=== PATIENT | female | born 1990 | race Caucasian/White ===

== ENCOUNTER 2019-09-09 14:21 | Emergency (ER) | payer BC ==
--- NOTE | 2019-09-09 14:40 | ERPHSYRPT ---
- History of Present Illness Time Seen by Provider: 09/09/19 14:40 Historian: patient Exam Limitations: no limitations Patient Subjective Stated Complaint: Pt woke up this morning and was feeling nauseaous and had some diarrhea, later vomited 3 times and has cramping across her upper abdomen, hx of kidney stones and she said that it feels like that Triage Nursing Assessment: Pt walked into the ER with c/o to her martin upper quadrants of abdomen, vomiting, cramping, vitals wnl, rates pain 8/10, skin is flushed, pulses normal, lungs clear, diarrhea Physician History: 29 y/o white female presents with first nausea, then vomiting then abd cramping then diarrhea. began this am. similar sx as in past when she had "kidney stones ". no cough, no sore throat. no other individuals with similar sx. Timing/Duration: today Activities at Onset: none Quality: cramping Abdominal Pain Onset Location: generalized abdomen Pain Radiation: no radiation Severity of Pain-Max: moderate Severity of Pain-Current: moderate Modifying Factors: Improves With: vomiting Associated Symptoms: diarrhea, loss of appetite, nausea, vomiting Previous symptoms: no prior history Allergies/Adverse Reactions: Sulfa (Sulfonamide Antibiotics) Allergy (Verified 09/09/19 14:39) Home Medications: Levonorgestrel-Ethin Estradiol [Sronyx 0.10-0.02 mg Tablet] 1 tab PO DAILY 09/09 [History] - Review of Systems Constitutional: No Symptoms Eyes: No Symptoms Ears, Nose, & Throat: No Symptoms Respiratory: No Symptoms Cardiac: No Symptoms Abdominal/Gastrointestinal: Abdominal Pain, Nausea, Vomiting, Diarrhea Genitourinary Symptoms: No Symptoms Musculoskeletal: No Symptoms Skin: No Symptoms Neurological: No Symptoms Psychological: No Symptoms Endocrine: No Symptoms Hematologic/Lymphatic: No Symptoms Immunological/Allergic: No Symptoms All Other Systems: Reviewed and Negative - Past Medical History Pertinent Past Medical History: Yes Neurological History: No Pertinent History ENT History: No Pertinent History Cardiac History: No Pertinent History Respiratory History: No Pertinent History Endocrine Medical History: No Pertinent History Musculoskeletal History: No Pertinent History GI Medical History: No Pertinent History History: No Pertinent History Psycho-Social History: No Pertinent History Female Reproductive Disorders: No Pertinent History Other Medical History: kidney stones - Past Surgical History Past Surgical History: Yes Neuro Surgical History: No Pertinent History Cardiac: No Pertinent History Respiratory: No Pertinent History Gastrointestinal: No Pertinent History Genitourinary: No Pertinent History Musculoskeletal: No Pertinent History Female Surgical History: Section - Social History Smoking Status: Never smoker Exposure to second hand smoke: No Patient Lives Alone: No - Female History Hx Last Menstrual Period: 08/30/2019 Hx Now: No - Nursing Vital Signs Nursing Vital Signs: Initial Vital Signs Temperature 98.4 F 09/09/19 14:27 Pulse Rate 92 H 09/09/19 14:27 Blood Pressure 126/85 09/09/19 14:27 O2 Sat by Pulse Oximetry 100 09/09/19 14:27 Pain Scale Pain Intensity 8 - Physical Exam General Appearance: mild distress, alert, anxiety Eye Exam: PERRL/EOMI, eyes nml inspection Ears, Nose, Throat Exam: normal ENT inspection, moist mucous membranes Neck Exam: normal inspection, non-tender, supple, full range of motion Respiratory Exam: normal breath sounds, lungs clear, No chest tenderness, No respiratory distress Cardiovascular Exam: regular rate/rhythm, normal heart sounds, normal peripheral pulses Gastrointestinal/Abdomen Exam: soft, normal bowel sounds, tenderness (mild diffuse), guarding, No rebound Pelvic Exam: not done Rectal Exam: not done Back Exam: normal inspection, normal range of motion, No CVA tenderness, No vertebral tenderness Extremity Exam: normal inspection, normal range of motion, pelvis stable Neurologic Exam: alert, oriented x 3, cooperative, irrigation manager II-XII nml as tested Skin Exam: normal color, warm, dry Lymphatic Exam: No adenopathy SpO2 Interpretation: normal SpO2: 100 O2 Delivery: Room Air Ordered Tests: Active Orders 24 hr Category Date Time Status IV Insertion STAT Care 09/09/19 14:44 Active ABDOMEN AND PELVIS W/0 CONTRAS [CT] Stat Exams 09/09/19 14:45 Completed AMYLASE Stat Lab 09/09/19 15:05 Completed CBC W DIFF Stat Lab 09/09/19 14:44 Completed CMP Stat Lab 09/09/19 15:05 Completed HCG,QUALITATIVE URINE Stat Lab 09/09/19 16:05 Completed LIPASE Stat Lab 09/09/19 15:05 Completed Lactic Acid Stat Lab 09/09/19 15:40 Completed UA W/RFX UR CULTURE Stat Lab 09/09/19 Completed Medication Summary Discontinued Medications Generic Name Dose Route Start Last Admin Trade Name Freq PRN Reason Stop Dose Admin Hydromorphone HCl 0.5 mg 09/09/19 14:44 09/09/19 15:05 Hydromorphone 1 Mg/Ml Ampule IV 09/09/19 14:45 0.5 mg STAT ONE Administration Hydromorphone HCl Confirm 09/09/19 15:01 Hydromorphone 1 Mg/Ml Ampule Administered 09/09/19 15:02 Dose 1 mg .ROUTE .STK-MED ONE Sodium Chloride 1,000 mls @ 999 mls/hr 09/09/19 14:44 09/09/19 16:08 Sodium Chloride 0.9% 1000 Ml IV 09/09/19 15:44 Infused .Q1H1M STA Infusion Sodium Chloride Confirm 09/09/19 15:01 Sodium Chloride 0.9% 1000 Ml Administered 09/09/19 15:02 Dose 1,000 mls @ ud .ROUTE .STK-MED ONE Ondansetron HCl 4 mg 09/09/19 14:44 09/09/19 15:04 Zofran 4 Mg/2 Ml Vial IV 09/09/19 14:45 4 mg STAT ONE Administration Ondansetron HCl Confirm 09/09/19 15:00 Zofran 4 Mg/2 Ml Vial Administered 09/09/19 15:01 Dose 4 mg .ROUTE .STK-MED ONE Lab/Rad Data: Laboratory Result Diagrams 09/09/19 14:44 09/09/19 15:05 Laboratory Results 09/09/19 09/09/19 09/09/19 Range/Units Unknown Unknown 16:05 WBC (4.0-10.5) K/mm3 RBC (4.1-5.4) M/mm3 Hgb (12.0-16.0) gm/dl Hct (35-47) % MCV (78-100) fl MCH (26-32) pg MCHC (32-36) g/dl RDW (11.5-14.0) % Plt Count (150-450) K/mm3 MPV (7.5-11.0) fl Gran % (36.0-66.0) % Eos # (Auto) (0-0.5) Absolute Lymphs (auto) (1.0-4.6) Absolute Monos (auto) (0.0-1.3) Lymphocytes % (24.0-44.0) % Monocytes % (0.0-12.0) % Eosinophils % (0.00-5.0) % Basophils % (0.0-0.4) % Absolute Granulocytes (1.4-6.9) Basophils # (0-0.4) Sodium (137-145) mmol/L Potassium (3.5-5.1) mmol/L Chloride (98-107) mmol/L Carbon Dioxide (22-30) mmol/L Anion Gap (5-15) MEQ/L BUN (7-17) mg/dL Creatinine (0.52-1.04) mg/dL Estimated GFR ML/MIN Glucose (74-106) mg/dL Lactic Acid (0.4-2.0) Calcium (8.4-10.2) mg/dL Total Bilirubin (0.2-1.3) mg/dL AST (14-36) U/L ALT (0-35) U/L Alkaline Phosphatase (38-126) U/L Serum Total Protein (6.3-8.2) g/dL Albumin (3.5-5.0) g/dL Amylase (30-110) U/L Lipase (23-300) U/L Urine Color YELLOW (YELLOW) Urine Appearance SLIGHTLY CLOUDY (CLEAR) Urine pH 5.0 (5-6) Ur Specific [place] 1.029 (1.005-1.025) Urine Protein NEGATIVE (Negative) Urine Ketones SMALL (NEGATIVE) Urine Blood LARGE (0-5) Praveen/ul Urine Nitrite NEGATIVE (NEGATIVE) Urine Bilirubin NEGATIVE (NEGATIVE) Urine Urobilinogen NEGATIVE (0-1) mg/dL Ur Leukocyte Esterase NEGATIVE (NEGATIVE) Urine WBC (Auto) NONE (0-5) /HPF Urine RBC (Auto) 16-25 (0-2) /HPF U Epithel Cells (Auto) RARE (FEW) /HPF Urine Bacteria (Auto) NONE (NEGATIVE) /HPF Urine Mucus (Auto) MODERATE (NEGATIVE) /HPF Urine Culture Reflexed NO (NO) Urine Glucose NEGATIVE (NEGATIVE) mg/dL Urine HCG, Qual NEGATIVE (Negative) Influenza Type A Ag NEGATIVE (NEGATIVE) Influenza Type B Ag NEGATIVE (NEGATIVE) RSV (PCR) NEGATIVE (Negative) Group A Strep Antibody NEGATIVE (NEGATIVE) 09/09/19 09/09/19 09/09/19 Range/Units 15:40 15:05 14:44 WBC 13.4 H (4.0-10.5) K/mm3 RBC 4.89 (4.1-5.4) M/mm3 Hgb 14.4 (12.0-16.0) gm/dl Hct 42.2 (35-47) % MCV 86.3 (78-100) fl MCH 29.4 (26-32) pg MCHC 34.1 (32-36) g/dl RDW 12.9 (11.5-14.0) % Plt Count 216 (150-450) K/mm3 MPV 9.5 (7.5-11.0) fl Gran % 87.7 H (36.0-66.0) % Eos # (Auto) 0.15 (0-0.5) Absolute Lymphs (auto) 0.81 L (1.0-4.6) Absolute Monos (auto) 0.68 (0.0-1.3) Lymphocytes % 6.0 L (24.0-44.0) % Monocytes % 5.1 (0.0-12.0) % Eosinophils % 1.1 (0.00-5.0) % Basophils % 0.1 (0.0-0.4) % Absolute Granulocytes 11.79 H (1.4-6.9) Basophils # 0.01 (0-0.4) Sodium 140 (137-145) mmol/L Potassium 4.3 (3.5-5.1) mmol/L Chloride 106 (98-107) mmol/L Carbon Dioxide 22 (22-30) mmol/L Anion Gap 16.2 H (5-15) MEQ/L BUN 21 H (7-17) mg/dL Creatinine 0.67 (0.52-1.04) mg/dL Estimated GFR > 60.0 ML/MIN Glucose 90 (74-106) mg/dL Lactic Acid 1.0 (0.4-2.0) Calcium 8.7 (8.4-10.2) mg/dL Total Bilirubin 1.30 (0.2-1.3) mg/dL AST 26 (14-36) U/L ALT 16 (0-35) U/L Alkaline Phosphatase 79 (38-126) U/L Serum Total Protein 8.0 (6.3-8.2) g/dL Albumin 4.3 (3.5-5.0) g/dL Amylase 82 (30-110) U/L Lipase 19 L (23-300) U/L Urine Color (YELLOW) Urine Appearance (CLEAR) Urine pH (5-6) Ur Specific [place] (1.005-1.025) Urine Protein (Negative) Urine Ketones (NEGATIVE) Urine Blood (0-5) Praveen/ul Urine Nitrite (NEGATIVE) Urine Bilirubin (NEGATIVE) Urine Urobilinogen (0-1) mg/dL Ur Leukocyte Esterase (NEGATIVE) Urine WBC (Auto) (0-5) /HPF Urine RBC (Auto) (0-2) /HPF U Epithel Cells (Auto) (FEW) /HPF Urine Bacteria (Auto) (NEGATIVE) /HPF Urine Mucus (Auto) (NEGATIVE) /HPF Urine Culture Reflexed (NO) Urine Glucose (NEGATIVE) mg/dL Urine HCG, Qual (Negative) Influenza Type A Ag (NEGATIVE) Influenza Type B Ag (NEGATIVE) RSV (PCR) (Negative) Group A Strep Antibody (NEGATIVE) - Progress Progress: improved, pain not gone completely, re-examined Progress Note: 09/09/19 16:55 ct abd/pelvis-right pelvic cystic mass. presumed ovarian. Counseled pt/family regarding: lab results, diagnosis, need for follow-up, rad results - Departure Departure Disposition: Home Clinical Impression: Ovarian cystic mass Condition: Stable Critical Care Time: No Referrals: DOCTOR,NO FAMILY [Primary Care Provider] - Additional Instructions: add ibuprofen for pain. call your impact hammer operator or primary doctor tomorrow to arrange a follow up appointment. Prescriptions: Hydrocodone/APAP 5-325 Tab^^^ [[place] 5-325 Tablet^^^] 1 tab PO Q6HPRN PRN #10 tablet MDD 6 PRN Reason: Pain
[2019-09-09] MEDS ORDERED: Hydromorphone 1 mg/ml Ampule IV ONE (14:44)
[2019-09-09] MEDS ORDERED: Zofran 4 MG/2 ML VIAL IV ONE (14:44)
[2019-09-09] MEDS ORDERED: Sodium Chloride 0.9% 1000 ML 1,000 ML IV STA (14:44)
[2019-09-09] MEDS ORDERED: Zofran 4 MG/2 ML VIAL ONE (15:00)
[2019-09-09] MEDS ORDERED: Hydromorphone 1 mg/ml Ampule ONE (15:01)
[2019-09-09] MEDS ORDERED: Sodium Chloride 0.9% 1000 ML 1,000 ML ONE (15:01)
[2019-09-09 15:14] LABS: Absolute Neutrophil Ct (ANC) 11.79 (1.4-6.9); BASOPHIL % 0.1 % (0.0-0.4); Basophil (Absolute #) 0.01 (0-0.4); Eosinophil % 1.1 % (0.00-5.0); Eosinophil (Absolute #) 0.15 (0-0.5); Hematocrit 42.2 % (35-47); Hemoglobin 14.4 gm/dl (12.0-16.0); Lymphocyte (Absolute #) 0.81 (1.0-4.6); Mean Cell Volume 86.3 fl (78-100); Mean Corpuscular Hemoglobin 29.4 pg (26-32); Mean Corpuscular Hgb Concent. 34.1 g/dl (32-36); Mean Platelet Volume 9.5 fl (7.5-11.0); Monocyte (Absolute #) 0.68 (0.0-1.3); Monocytes % 5.1 % (0.0-12.0); Neutrophil % 87.7 % (36.0-66.0); Platelet Count 216 K/mm3 (150-450); Red Blood Count 4.89 M/mm3 (4.1-5.4); Red Cell Distribution Width 12.9 % (11.5-14.0); White Blood Count 13.4 K/mm3 (4.0-10.5)
[2019-09-09 15:27] LABS: ALBUMIN 4.3 g/dL (3.5-5.0); ALKALINE PHOSPHATASE 79 U/L (38-126); AMYLASE 82 U/L (30-110); ANION GAP 16.2 MEQ/L (5-15); BLOOD UREA NITROGEN 21 mg/dL (7-17); CHLORIDE 106 mmol/L (98-107); Calcium 8.7 mg/dL (8.4-10.2); Carbon Dioxide 22 mmol/L (22-30); Creatinine 1 0.67 mg/dL (0.52-1.04); Glucose 90 mg/dL (74-106); LIPASE 19 U/L (23-300); Potassium 4.3 mmol/L (3.5-5.1); SGOT/AST 26 U/L (14-36); SGPT/ALT 16 U/L (0-35); SODIUM 140 mmol/L (137-145)
[2019-09-09 16:09] LABS: INFLUENZA A NEGATIVE (NEGATIVE); INFLUENZA B NEGATIVE (NEGATIVE); RESPIRATORY SYNCTIAL VIRUS NEGATIVE (Negative)
[2019-09-09 16:23] LABS: Appearance SLIGHTLY CLOUDY (CLEAR); Bilirubin NEGATIVE (NEGATIVE); Blood LARGE Ery/ul (0-5); Epithelial Cells RARE /HPF (FEW); Glucose NEGATIVE (NEGATIVE); Ketones SMALL (NEGATIVE); Leukocyte Esterase NEGATIVE (NEGATIVE); Mucus MODERATE /HPF (NEGATIVE); Nitrite NEGATIVE (NEGATIVE); Protein,Urine Dip NEGATIVE (Negative); Specific Gravity 1.029 (1.005-1.025); Urobilinogen NEGATIVE mg/dL (0-1)
--- NOTE | 2019-09-09 16:54 | XRAY ---
Indication: Abdomen pain, nausea, vomiting, diarrhea. Multiple contiguous axial images obtained through the abdomen and pelvis without contrast as ordered. Comparison: None Lung bases are clear. Heart is not enlarged. Stomach is distended with food/fluid. Noncontrasted bowel loops appear nonobstructed. Normal air-filled appendix. Mild scattered splenic flexure and sigmoid diverticulosis. 7 cm right pelvic cystic mass presumed ovary. No free fluid/air. Spleen is enlarged measuring 12.7 cm in greatest axial dimension. Remaining liver, gallbladder, pancreas, spleen, adrenal glands, kidneys, ureters, bladder, uterus, and aorta appear unremarkable for noncontrast exam. Osseous structures intact. Impression: 1. 7 cm right pelvic cystic mass possibly ovary in etiology. Pelvic sonogram may yield further information. 2. Incidental mild colonic diverticulosis and splenomegaly.
[2019-09-09 17:02] VITALS: BP 124/60; PULSE 78; O2SAT 98
== END 2019-09-09 17:11 | disposition home or self-care (01) ==
LOC: ED 14:21
DX: N83.202 Unspecified ovarian cyst, left side (principal)
CPT/HCPCS: 36415; 74176; 80053; 81001; 82150; 83605; 83690; 84703; 85025; 87631; 87651; 96360; 96374; 99284; J1170; J2405

== ENCOUNTER 2022-04-18 06:28 | Day surgery (SDC) | payer BC ==
[~2022-04-18 06:28] MED LIST: ASTRINGYN 8 GM TP ONE; Pepcid 20 MG VIAL IV ONE; Reglan 10 MG/2 ML IV ONE; Transderm Scop 1.5MG Patch TOP PRN; Versed 2 MG/2 ML Injection IV PRN; XYLOCAINE 1%/Epi 1:100000 MDV 20 ML ONE
[2022-04-18] MEDS ORDERED: Lactated Ringers 1,000 ML IV SCH (06:30)
[2022-04-18] MEDS ORDERED: CEFAZOLIN 2 GM-D5W BAG** 2 GM/50 ML ML IV SCH (06:30)
[2022-04-18 06:50] VITALS: O2SAT 97
[2022-04-18] MEDS ORDERED: CEFAZOLIN 2 GM-D5W BAG** 2 GM/50 ML ML IV ONE (06:52)
[2022-04-18] MEDS ORDERED: Transderm Scop 1.5MG Patch ONE (06:52)
[2022-04-18] MEDS ORDERED: Pepcid 20 MG VIAL IV ONE ×2 (06:52→06:58)
[2022-04-18] MEDS ORDERED: Lactated Ringers 1,000 ML IV ONE (06:53)
[2022-04-18] MEDS ORDERED: Reglan 10 MG/2 ML ONE (06:53)
[2022-04-18] MEDS ORDERED: Versed 2 MG/2 ML Injection ONE (07:53)
[2022-04-18] MEDS ORDERED: DIPRIVAN 200 MG/20 ML IV ONE (08:46)
[2022-04-18] MEDS ORDERED: Zofran 4 MG/2 ML VIAL ONE (08:46)
[2022-04-18] MEDS ORDERED: Xylocaine-Mpf 2% 5 Ml Vial ONE (08:46)
[2022-04-18] MEDS ORDERED: Decadron 4 MG INJ ONE (08:46)
[2022-04-18] MEDS ORDERED: SUBLIMAZE 100 MCG/2 ML ONE (08:46)
[2022-04-18] MEDS ORDERED: TORAdol 30 mg Injection ONE (09:01)
[2022-04-18 10:10] VITALS: BP 104/59; PULSE 85
--- NOTE | 2022-04-19 09:15 | OP ---
SURGERY DATE/TIME: 04/18/2022 0844 PREOPERATIVE DIAGNOSIS: Recurrent cervical dysplasia. POSTOPERATIVE DIAGNOSIS: Recurrent cervical dysplasia. PROCEDURE: Loop electrosurgical excision procedure (LEEP). SURGEON: Volodymyr Nagy D.O. MANAGER MEDIA RELATIONS: Inna Mott aviation electronics technician. ANESTHESIA: General. ESTIMATED BLOOD LOSS: Minimal. COMPLICATIONS: None. INDICATIONS: The risks, benefits, indications and alternatives of the procedure were reviewed with the patient prior to procedure. The patient understood the risk of infection, bleeding, bowel injury, bladder injury, ureteral injury, uterine perforation and cervical incompetence associated with this procedure and desires to have this procedure as a possible means to alleviate her current medical condition. DESCRIPTION OF PROCEDURE AND FINDINGS: At this point the patient is taken to the operating room, given general sedation, placed in the dorsal lithotomy position, prepped and draped in the usual sterile fashion. A coated speculum is then placed in the patient's vagina and the cervix was then circumferentially injected with 1% lidocaine and approximately 6 cc were used. From this point a loop instrument was used to excise the ectocervical portion from a right to left motion with an in depth of 7 to 8 mm of ectocervical tissue which was excised and was done so without complication. An additional 2 to 3 mm of endocervical tissue was taken in a similar fashion with a right to left motion. From this point hemostasis was obtained by placing the loop glazier artist ball on the surface of the cervix. From this point there was no bleeding noted from the cervical region and at this point all instruments removed from the patient's vaginal region. The patient was then taken out of the dorsal lithotomy position and was then taken to the recovery room in stable condition.
== END 2022-04-18 10:10 | disposition home or self-care (01) ==
LOC: SDC 06:28
PROVIDERS: ATTEND Obstetrics & Gynecology
DX: N87.9 Dysplasia of cervix uteri, unspecified (principal)
CPT/HCPCS: 81025; 96374; 96375; J0690; J1100; J1885; J2250; J2405; J2704; J3010; A9270-GY